=== PATIENT | female | born 1955 | race Caucasian/White ===

== ENCOUNTER 2021-08-23 09:49 | Outpatient (CLI) | payer OTHER, SELFPAY ==
[2021-08-23 10:15] LABS: Hematocrit 43.4 % (37.0-47.0); Hemoglobin 13.8 g/dL (12.0-15.0)
== END 2021-08-23 09:50 | disposition home or self-care (01) ==
LOC: ANHSURGERY 09:56
PROVIDERS: PCP Nurse Practitioner; Visit Provider Obstetrics & Gynecology
DX: Z01.818 Encounter for other preprocedural examination (principal); N95.0 Postmenopausal bleeding
CPT/HCPCS: 36415; 85014; 85018

== ENCOUNTER 2021-08-26 03:28 | Day surgery (SDC) | payer OTHER, SELFPAY ==
[2021-08-22 10:56] VITALS: BMI 32.4
--- NOTE | 2021-08-22 11:05 | PC.NURSE ---
Report to the Outpatient Waiting Room, entrance under the green pavilion located off [facility], at time __0630 on date _08/26/21 . OR Time: . - You will be asked a series of questions to screen for COVID 19 for your protection. - A mask is required within the hospital. - No visitors are allowed at this time. Preoperative COVID Testing Requirements: No COVID Test needed if: (proof is required; if not received patient will have Rapid Test prior to entry) - Patient has received COVID Vaccine at least 14 days prior to procedure date or - Patient has positive COVID test result within last 90 days of surgery date. COVID Test needed if above criteria is not met If not COVID vaccinated a COVID test must be conducted within 72 hours of surgery and patient is asked to isolate self from time of testing until procedure. You will go to the [facility] for your COVID testing. The [facility] is located at the corner of [address] [facility]. You will only be called if COVID results are positive and your surgeon may reschedule your elective surgery date. Patients may have clear liquids (water, carbonated beverages, clear teas, apple juice) until 3 hours prior to surgery with a maximum of 20 ounces. - No food from midnight until time of surgery - Infants may have breast milk until 4 hours before surgery, infant formula 6 hours prior to surgery. - Children will be allowed to drink immediately following surgery. If applicable, please bring a bottle or sippy cup to assist with drinking. Juice, water, soda, and popsicles are readily available. For infants on formula, please bring formula the day of surgery. Pacifiers are allowed. Take the following medications with a SIP of water the morning of surgery: __NIFEDIPINE Medications to discontinue per physician NONE Date to take last dose Please no make-up, nail faroese, hairspray, perfume, deodorant, or body powder the day of surgery. No jewelry (including any body piercings) or valuables the day of surgery, leave them at home. Please take a shower or bath the night before, or the morning of, surgery with an antibacterial soap. Wear comfortable, loose fitting clothing. Children are encouraged to wear pajamas. - Jewelry must be removed prior to entering the operating room. Rings and piercings that are not removed may be cut off. - The hospital will not accept responsibility for valuables. - Please leave all valuables, including medications, at home the day of surgery. If you are going home after surgery, a licensed driver's license examiner must drive you home. - NO public transportation without another adult. - We recommend that an adult stay with you for 24 hours following discharge. - We also recommend that you do not drive, make important decision, drink alcoholic beverages, or take any drugs that were not prescribed by your health care provider for at least 24 hours after your discharge time. For Pediatric surgeries, we recommend two adults accompany the child home (only one inside the building at this time). Follow any additional instructions given to you from your surgeon. Telephone instructions given to __PATIENT and asked if any additional questions and then verbalized understanding. Patient advised to call surgeon office or pre surgery nurse liaison [phone] if any additional questions.
--- NOTE | 2021-08-24 07:50 | PM.IMHP ---
H&P: HPI History of Present Illness Date/Time: 08/24/21 07:50 66-year-old female 1 para 1 admitted for hysteroscopy dilatation curettage secondary to postmenopausal bleeding. This patient had the has taken some steroids and had some postmenopausal bleeding. She has taken no hormones but had not had a Pap smear for some. Ultrasound shows thickened endometrium uterine fibroid. Risks and benefits reviewed Chief Complaint: Postmenopausal bleeding Review of Systems Review of Systems: All systems reviewed & are unremarkable except as noted in HPI and below PMFSH Past Medical History Medical History Abnormal ultrasound of breast Essential (primary) hypertension Hyperlipidemia Microcalcifications of the breast Surgical History Surgical History History of section (~1991) Family History Family History Father Family history of congestive heart failure Other Cerebrovascular accident Family history of malignant neoplasm Social History Social History Smoking status: Never smoker Alcohol intake: unknown Substance use: never Gender identity (if verbalized by the patient): Female Sexual Orientation (if Verbalized by the Patient): Straight or Heterosexual Spiritual care concerns: No Meds Home Medications and Allergies Home Medications Medication Instructions Recorded Confirmed Type nifedipine 30 mg tablet,extended 30 mg PO DAILY 08/10/21 08/22/21 History release Allergies Allergy/AdvReac Type Severity Reaction Status Date / Time Sulfa (Sulfonamide Allergy Unknown Hives Verified 08/22/21 10:53 Antibiotics) lisinopril AdvReac Mild Cough Verified 08/22/21 10:53 Exam Const: General: no acute distress Eyes: General: appearance normal, both eyes and all related structures Neck: Neck: supple and no JVD Thyroid: thyroid normal Resp: Effort & Inspection: normal respiratory effort Auscultation: clear to auscultation bilaterally Cardio: Rate: regular rate Rhythm: regular rhythm GI: Inspection: non-distended GI Palp: Yes Soft to palpation, No Tenderness to palpation present (GI) and No Guarding due to palpation present (GI) Auscultation: normal bowel sounds : General: Yes bladder normal to palpation External Female Exam: normal external appearance Speculum Exam - Vagina: normal vaginal discharge and No vaginal bleeding Speculum Exam - Cervix: nontender Bimanual exam- vagina & uterus: bladder normal to palpation and No Cervical tenderness present OB/external & speculum: No vaginal bleeding Skin: General skin exam: no rashes or lesions noted Extrem: General: normal to inspection and no edema Psych: Mental Status: mental status grossly normal Affect: normal affect Assessment and Plan Additional Plan Impression: Postmenopausal bleeding Plan: Hysteroscopy/dilatation and curettage
[2021-08-26 07:00] VITALS: BP 125/83; PULSE 76; RESP 16; TEMP 36.7; O2SAT 98
[2021-08-26] MEDS: LACTATED RINGERS 1,000 ML 30 ML IV CONT (07:00)
[2021-08-26] MEDS: ACETAMINOPHEN 500 MG TABLET 1000 MG PO (07:10)
--- NOTE | 2021-08-26 07:13 | WPDHPUPDATE1 ---
History and Physical Update Update Date/Time: 08/26/21 07:13 History and Physical has been reviewed, including an updated exam of the patient. There are NO changes in the patient's condition. Risks, benefits, and alternatives have been discussed and questions answered. Patient agrees to proceed with procedure.
--- NOTE | 2021-08-26 08:11 | WPDANESEPPF ---
Anes - Initial Pre Proc Eval Procedure: Operation Date: 08/26/21 08:30 Proposed Procedures p Hysteroscopy Dilation and Curettage - Nico Valladares MD Date/Time: 08/26/21 08:11 Surgeon: Nico Valladares MD Pre Op Diagnosis: post menopausal bleeding Patient Data Age: 66 Gender: F Height: 1.65 m Weight: 87.4 kg Last Vital Signs Temp 36.7 C 08/26/21 07:00 Pulse 76 08/26/21 07:00 Resp 16 08/26/21 07:00 BP 125/83 08/26/21 07:00 Pulse Ox 98 08/26/21 07:00 Allergies Allergy/AdvReac Type Severity Reaction Status Date / Time Sulfa (Sulfonamide Allergy Unknown Hives Verified 08/26/21 07:40 Antibiotics) lisinopril AdvReac Mild Cough Verified 08/26/21 07:40 Home Medications Medication Instructions Recorded Confirmed Type nifedipine 30 mg tablet,extended 30 mg PO DAILY 08/10/21 08/26/21 History release hydrocodone-acetaminophen 1 tablet PO Q4H PRN #20 tablet 08/26/21 Rx Patient hx anesthesia problems: none Family hx anesthesia problems: none Results Review: All pre-operative results and documents have been reviewed as part of the pre-operative evaluation. [facility] Past Medical History Medical History Abnormal ultrasound of breast Essential (primary) hypertension Hyperlipidemia Microcalcifications of the breast Surgical History Surgical History History of section (~1991) Family History Family History Father Family history of congestive heart failure Other Cerebrovascular accident Family history of malignant neoplasm Social History Social History Smoking status: Never smoker Alcohol intake: unknown Substance use: never Living arrangements: with family Gender identity (if verbalized by the patient): Female Sexual Orientation (if Verbalized by the Patient): Straight or Heterosexual Spiritual care concerns: No Anes - Eval Final PreProcedure Day of Procedure 08/26/21 08:11 Patient weight: obese Heart: regular rate and rhythm Lungs: clear to auscultation Airway: Mallampati scale class II Neurological: alert and oriented Last oral intake: >/= 8 hours ASA classification: II Emergent: no Anesthetic plan: proceed Anesthesia type and monitoring: general GIVS and standard monitoring Results Review: All pre-operative results and documents have been reviewed as part of the pre-operative evaluation. Informed Consent: The patient's anesthetic plan and its attendant risks and benefits were discussed with the patient/family/POA. Questions were solicited and answers provided to the satisfaction of the patient/family/POA.
--- NOTE | 2021-08-26 08:46 | W.PM.PROC2 ---
Procedure Note - Detailed Date of Procedure 08/26/21 Pre-op Diagnosis post menopausal bleeding Post-op Diagnosis other Procedure Performed hysteroscopy/ biopsy of intrauterine mass. /Dilatation curettage Surgeon Nico Valladares MD Anesthesia MAC and local Indications 66-year-old female with postmenopausal bleeding Findings what appeared to be large endometrial fibroid Description of Procedure the patient is prepped draped in normal sterile fashion placed in the dorsal lithotomy position. Under excellent IV sedation weighted speculum placed posterior fornix vagina. Anterior lip of the cervix grasped with single-tooth tenaculum and 2.5cc 1% xylocaine anesthesia placed at 2, 4, 8, 10:00 a.m. cervix. Uterus sounded to 8cm. Serial dilatation with fragmented dilators performed followed by passage of the 5mm visualizing hysteroscope. Normal saline was used as visualizing medium. A large fibroid appearing lesion was noted in the uterus which it filled the centrally the entire cavity. The biopsy forceps was passed and a large chunk removed without difficulty. The uterus scraped over the remainder the 360? with minimal tissue. The instruments removed and all were accounted for. All sponge, needle, instrument counts were correct. There were no immediate complications Estimated Blood Loss 5 Drains No Packing No Pathology yes Complications No immediate complications Condition stable Disposition PACU
[2021-08-26 08:50] VITALS: BP 84/58; PULSE 77; RESP 16; O2SAT 94
[2021-08-26 09:09] VITALS: BP 97/57; PULSE 76; RESP 16; O2SAT 98
== END 2021-08-26 09:50 | disposition home or self-care (01) ==
PROVIDERS: PCP Nurse Practitioner; Visit Provider Obstetrics & Gynecology
PROC: 0U5B8ZZ Destruction of Endometrium, Via Natural or Artificial Opening Endoscopic (ICD-10-PCS; CPT 58563; principal; 2021-08-26 08:30)
DX: N95.0 Postmenopausal bleeding (principal); N85.8 Other specified noninflammatory disorders of uterus; I10 Essential (primary) hypertension; E78.5 Hyperlipidemia, unspecified; E66.9 Obesity, unspecified; Z68.32 Body mass index [BMI] 32.0-32.9, adult
CPT/HCPCS: 58561; 36415; 85014; 85018; 88305; A9270; J2250; J2270; J2370; J2704; J7030; J7120

== ENCOUNTER 2021-10-10 09:17 | Outpatient (CLI) | payer OTHER, SELFPAY ==
--- NOTE | 2021-10-10 09:21 | ECG_ITS ---
Measurements Intervals N[place] Rate: 74 P: 37 WI: 158 QRS: -38 QRSD: 94 T: 1 QT: 364 QTc: 406 Interpretive Statements SINUS RHYTHM LEFT AXIS DEVIATION [QRS AXIS < -30] POSSIBLE ANTERIOR MYOCARDIAL INFARCTION [30 ms Q WAVE IN V3/V4, OR R < 0.2 mV IN V4], PROBABLY OLD BASELINE ARTIFACT BORDERLINE ECG NO PREVIOUS ECG AVAILABLE FOR COMPARISON Electronically Signed On 10-10-2021 12:25:41 CDT by Chadd Martin M.D.
[2021-10-10 10:28] LABS: Basophils Absolute Auto 0.1 K/mm3 (0.0-0.1); Basophils Percent Auto 0.6 % (0.2-1.2); Eosinophils Absolute Auto 0.1 K/mm3 (0-0.3); Eosinophils Percent Auto 1.7 % (0-4.4); Hematocrit 41.6 % (37.0-47.0); Hemoglobin 13.1 g/dL (12.0-15.0); Immature Granulocyte Absolute 0.03 K/mm3 (0.00-0.031); Immature Granulocyte Percent A 0.4 % (0-0.5); Lymphocytes Absolute Auto 2.08 K/mm3 (0.9-3.2); Lymphocytes Percent Auto 26.8 % (18.3-44.2); Mean Corpuscular HGB Conc 31.5 g/dl (32-36); Mean Corpuscular Hemoglobin 28.7 pg (26-34); Mean Platelet Volume 10.5 fl (7.4-10.4); Monocytes Absolute Auto 0.6 K/mm3 (0.1-0.6); Monocytes Percent Auto 7.6 % (2.6-8.5); Neutrophils Absolute Auto 4.9 K/mm3 (1.3-6.7); Neutrophils Percent Auto 62.9 % (45.5-73.1); Platelet Count Result 275 k/mm3 (150-375); Red Blood Count 4.57 M/mm3 (4.2-5.4); Red Cell Distribution Width 14.1 % (11.5-14.5); White Blood Count 7.8 K/mm3 (4.5-10.0)
== END 2021-10-10 09:18 | disposition home or self-care (01) ==
LOC: ANHSURGERY 09:19
PROVIDERS: PCP Nurse Practitioner; Visit Provider Obstetrics & Gynecology
DX: Z01.818 Encounter for other preprocedural examination (principal); N95.0 Postmenopausal bleeding; I10 Essential (primary) hypertension
CPT/HCPCS: 36415; 85025; 86850; 86900; 86901; 93005

== ENCOUNTER 2021-10-14 00:44 | Day surgery (SDC) | payer OTHER, SELFPAY ==
[2021-10-03 14:46] VITALS: BMI 32.3
--- NOTE | 2021-10-03 15:02 | PC.NURSE ---
Report to the Outpatient Waiting Room, entrance under the green pavilion located off [facility], at time __6:00AM on date ___10/14/21____. OR Time: ___7:30AM . - You and your visitor will be asked a series of questions to screen for COVID 19 for your protection. - A mask is required within the hospital. Preoperative COVID Testing Requirements: No COVID Test needed if: (proof is required; if not received patient will have Rapid Test prior to entry) - Patient has received COVID Vaccine at least 14 days prior to procedure date or - Patient has positive COVID test result within last 90 days of surgery date. COVID Test needed if above criteria is not met If not COVID vaccinated a COVID test must be conducted within 72 hours of surgery and patient is asked to isolate self from time of testing until procedure. You will go to the [facility] for your COVID testing. The [employer] [facility] site is located at the corner of [address] from [facility]. You will only be called if COVID results are positive and your surgeon may reschedule your elective surgery date. Patients may have clear liquids (water, carbonated beverages, clear teas, apple juice) until 3 hours prior to surgery with a maximum of 20 ounces. - No food from midnight until time of surgery - Infants may have breast milk until 4 hours before surgery, infant formula 6 hours prior to surgery. - Children will be allowed to drink immediately following surgery. If applicable, please bring a bottle or sippy cup to assist with drinking. Juice, water, soda, and popsicles are readily available. For infants on formula, please bring formula the day of surgery. Pacifiers are allowed. Take the following medications with a SIP of water the morning of surgery: ____NONE Medications to discontinue per physician NONE Date to take last dose Please no make-up, nail kuwaiti, hairspray, perfume, deodorant, or body powder the day of surgery. No jewelry (including any body piercings) or valuables the day of surgery, leave them at home. Please take a shower or bath the night before, or the morning of, surgery with an antibacterial soap. Wear comfortable, loose fitting clothing. Children are encouraged to wear pajamas. - Jewelry must be removed prior to entering the operating room. Rings and piercings that are not removed may be cut off. - The hospital will not accept responsibility for valuables. - Please leave all valuables, including medications, at home the day of surgery. If you are going home after surgery, a licensed pile driver engineer must drive you home. - NO public transportation without another adult. - We recommend that an adult stay with you for 24 hours following discharge. - We also recommend that you do not drive, make important decision, drink alcoholic beverages, or take any drugs that were not prescribed by your health care provider for at least 24 hours after your discharge time. For Pediatric surgeries, we recommend two adults accompany the child home (only one inside the building at this time). One visitor will be allowed to accompany the patient into the hospital. Patients visitor will be instructed to remain with patient at all times or leave the building. We will allow the visitor to come back to the postoperative area when patient is ready. Follow any additional instructions given to you from your surgeon. Telephone instructions given to _PATIENT and asked if any additional questions and then verbalized understanding. Patient advised to call surgeon office or pre surgery nurse liaison [phone] if any additional questions.
--- NOTE | 2021-10-12 07:53 | P.HP_ITS ---
H&P: HPI History of Present Illness Date/Time: 10/12/21 07:53 66-year-old female admitted for robotic hysterectomy and bilateral salpingo- oophorectomy secondary to fibroid uterus pelvic pain and postmenopausal bleeding with benign findings. Risks and benefits of the procedure reviewed in full. She had all questions answered. She asked to proceed Chief Complaint: Postmenopausal bleeding with enlarged uterus and pelvic pain Review of Systems Review of Systems: All systems reviewed & are unremarkable except as noted in HPI and below PMFSH Past Medical History Medical History Abnormal ultrasound of breast Essential (primary) hypertension Hyperlipidemia Microcalcifications of the breast Surgical History Surgical History History of section (~1991) Family History Family History Father Family history of congestive heart failure Other Cerebrovascular accident Family history of malignant neoplasm Social History Social History Smoking status: Never smoker Alcohol intake: unknown Substance use: never Additional living arrangements comments: SPOUSE Gender identity (if verbalized by the patient): Female Sexual Orientation (if Verbalized by the Patient): Straight or Heterosexual Spiritual care concerns: No Meds Home Medications and Allergies Home Medications Medication Instructions Recorded Confirmed Type nifedipine 30 mg tablet,extended 30 mg PO HS 08/10/21 10/03/21 History release Allergies Allergy/AdvReac Type Severity Reaction Status Date / Time Sulfa (Sulfonamide Allergy Unknown Hives Verified 10/03/21 14:44 Antibiotics) lisinopril AdvReac Mild Cough Verified 10/03/21 14:44 Exam Const: General: no acute distress Eyes: General: appearance normal, both eyes and all related structures Neck: Neck: supple and no JVD Thyroid: thyroid normal Resp: Effort & Inspection: normal respiratory effort Auscultation: clear to auscultation bilaterally Cardio: Rate: regular rate Rhythm: regular rhythm GI: Inspection: non-distended GI Palp: Yes Soft to palpation, No Tenderness to palpation present (GI) and No Guarding due to palpation present (GI) Auscultation: normal bowel sounds : External Female Exam: normal external appearance Speculum Exam - Vagina: normal appearance of the vagina Bimanual exam- vagina & uterus: enlarged Skin: General skin exam: no rashes or lesions noted Extrem: General: normal to inspection and no edema Psych: Mental Status: mental status grossly normal Affect: normal affect Assessment and Plan Additional Plan Impression: Enlarged uterus pelvic pain/uterine fibroids and postmenopausal bleeding with benign findings Plan: Robotic hysterectomy and bilateral salpingo-oophorectomy
--- NOTE | 2021-10-13 13:45 | WPDANESEPPF ---
Anes - Initial Pre Proc Eval Procedure: Operation Date: 10/14/21 07:30 Proposed Procedures p Robotic Assisted Total Vaginal Hysterectomy with Bilateral Salpingo-Oophorectomy - Nico Ojeda MD Date/Time: 10/13/21 13:45 Surgeon: Nico Ojeda MD Pre Op Diagnosis: Post Menopausal Bleed,Fibroids,Pain Enlarge Uterus Patient Data Age: 66 Gender: F Height: 1.65 m Weight: 88 kg Allergies Allergy/AdvReac Type Severity Reaction Status Date / Time Sulfa (Sulfonamide Allergy Unknown Hives Verified 10/14/21 06:05 Antibiotics) lisinopril AdvReac Mild Cough Verified 10/14/21 06:05 Home Medications Medication Instructions Recorded Confirmed Type nifedipine 30 mg tablet,extended 30 mg PO HS 08/10/21 10/14/21 History release hydrocodone-acetaminophen 1 tablet PO Q4H PRN #30 tablet 10/14/21 Rx Patient hx anesthesia problems: none Family hx anesthesia problems: none Results Review: All pre-operative results and documents have been reviewed as part of the pre-operative evaluation. [facility] Past Medical History Medical History Abnormal ultrasound of breast Essential (primary) hypertension Hyperlipidemia Microcalcifications of the breast Surgical History Surgical History History of section (~1991) Family History Family History Father Family history of congestive heart failure Other Cerebrovascular accident Family history of malignant neoplasm Social History Social History Smoking status: Never smoker Alcohol intake: unknown Substance use: never Living arrangements: with family Additional living arrangements comments: SPOUSE Gender identity (if verbalized by the patient): Female Sexual Orientation (if Verbalized by the Patient): Straight or Heterosexual Spiritual care concerns: No Anes - Eval Final PreProcedure Day of Procedure 10/13/21 13:45 Patient weight: overweight Heart: regular rate and rhythm Lungs: clear to auscultation Airway: Mallampati scale class III Neurological: alert and oriented Last oral intake: >/= 8 hours ASA classification: II Emergent: no Anesthetic plan: proceed Anesthesia type and monitoring: general ETT and standard monitoring Results Review: All pre-operative results and documents have been reviewed as part of the pre-operative evaluation. Informed Consent: The patient's anesthetic plan and its attendant risks and benefits were discussed with the patient/family/POA. Questions were solicited and answers provided to the satisfaction of the patient/family/POA.
[2021-10-14] VITALS (11 sets, daily range): BP systolic 113–149; BP diastolic 72–97; PULSE 63–114; RESP 12–18; TEMP 36.3–37.3; O2SAT 94–100
[2021-10-14] MEDS: ACETAMINOPHEN 500 MG TABLET 1000 MG PO (06:21)
[2021-10-14] MEDS: LACTATED RINGERS 1,000 ML 30 ML IV CONT ×2 (06:36→09:08)
[2021-10-14] MEDS: KETOROLAC 15 MG/ML VIAL (*BKC) IV PUSH ×2 (06:37→10:18)
--- NOTE | 2021-10-14 07:06 | WPDHPUPDATE1 ---
History and Physical Update Update Date/Time: 10/14/21 07:06 History and Physical has been reviewed, including an updated exam of the patient. There are NO changes in the patient's condition. Risks, benefits, and alternatives have been discussed and questions answered. Patient agrees to proceed with procedure.
[2021-10-14] MEDS: SCOPOLAMINE 1.5 MG PATCH TRANSDERM (07:21)
[2021-10-14] MEDS: ceFAZolin 2 GM/D5W 50 ML 2 GM/50 ML BAG IVPB (07:37)
--- NOTE | 2021-10-14 08:49 | P.OP_ITS ---
Procedure Note - Detailed Date of Procedure 10/14/21 Pre-op Diagnosis Post Menopausal Bleed,Fibroids,Pain Enlarge Uterus Post-op Diagnosis Same Procedure Performed Robotic total vaginal hysterectomy and bilateral salpingo-oophorectomy Surgeon Nico Ojeda MD Anesthesia General Indications this is a 66-year-old female with a history of postmenopausal bleeding benign findings endometrial sampling Findings enlarged uterus. Normal-appearing ovaries and tubes the left ovarian cyst was present measuring about 6cm very benign in nature Description of Procedure the patient was prepped draped in the normal sterile fashion placed in the dorsal lithotomy position. Under excellent general trach anesthesia weighted speculum was placed in posterior fornix vagina. Anterior lip of the cervix grasped with single-tooth tenaculum and the uterus sounded to 8cm. Serial dilatation with fragmented dilators performed followed by passage of the 6. JELENA and the 3. Cold cup. Next the 16 Kazakh catheter was placed in the bladder draining clear urine. The weighted speculum. Gloves were changed A supraumbilical incision made the Veress needle passed in the abdomen. Abdomen filled with CO2 gas to 15mm Hg. The 8mm trocar advanced under direct visualization assuring injury and the patient placed in Trendelenburg. Right left lateral quadrant incisions and made and the 8mm trocars advanced under direct visualization. A right upper quadrant incision made the 8mm trocar advanced under direct visualization assuring injury. The robot was docked. Attention was turned to the delinquency counselor. A large left ovarian cyst was seen but it had a benign left to it. The left round ligament was grasped, burned, cut and anteriorly a bladder flap by sharply dissecting and the reflecting the bladder caudally to the opposite round ligament which was clamped, burned, cut. A large left ovarian cyst was seen and the infundibulopelvic structure on the left was skeletonized. This was clamped, burned, cut and brought to the level of the previously cut round ligament. In like fashion removing the right ovary and tube the infundibulopelvic structure was skeletonized. This was clamped, burned, cut and brought to the level of previously cut round ligament. Next cardinal broad ligaments on the left were serially skeletonized. Hugging the cervix uterus ease were clamped, burned, cut and brought down the lateral edge of the uterus until the uterine vessels could be seen. These were individually clamped, burned, cut. In like fashion the cardinal broad ligaments on the right were serially skeletonized. Clamped, burned, cut and brought down lateral edge of the uterus and cervix until the uterine vessels could be seen on the right. These were individually clamped, burned, cut. Blanching the uterus was seen and a colpotomy incision made. The uterus cervix and ovaries and tubes removed through the vagina. The vagina then closed with continuous running 0V lock from lateral edge lateral edge back to the midline. Irrigation undertaken to clear hemostasis was assured. Blood loss estimated at5cc. The robot was undocked. The gas removed from the abdomen and the incisions closed with 4 Monocryl and g lue. Patient was awakened went recovery in satisfactory condition. All sponge, needle, instrument counts were correct. There were no immediate complications Estimated Blood Loss 5 Drains No Packing No Pathology Yes Complications No immediate complications Condition Stable Disposition PACU
[2021-10-14] MEDS: fentaNYL CITRATE INJ (*CRX) 100 MCG/2 ML VIAL 25 MCG IV PUSH ×4 (09:45→09:51)
--- NOTE | 2021-10-14 10:30 | PC.NURSE ---
This patient, Nakia Hernandez, was received from PACU on 10/14/21 at 1030. Patient/family oriented to unit policies and routines
[2021-10-14] MEDS: DEXTROSE 5%/LACTATED RINGERS 1,000 ML 125 ML IV CONT (10:49)
[2021-10-14] MEDS: KETOROLAC 30 MG/ML VIAL (*BKC) IV PUSH (14:33)
[2021-10-14] MEDS: ARTIFICIAL TEARS OPHTH SOLN 15 ML BOTTLE 1 DROP EACH EYE (14:33)
[2021-10-14] MEDS: NIFEdipine 30 MG TAB.ER.24 PO (21:00)
[2021-10-15 04:40] VITALS: BP 128/78; PULSE 94; RESP 16; TEMP 36.7
[2021-10-15 05:11] LABS: Basophils Percent Auto 0.2 % (0.2-1.2); Hematocrit 37.9 % (37.0-47.0); Immature Granulocyte Absolute 0.08 K/mm3 (0.00-0.031); Immature Granulocyte Percent A 0.5 % (0-0.5); Lymphocytes Absolute Auto 1.78 K/mm3 (0.9-3.2); Lymphocytes Percent Auto 10.7 % (18.3-44.2); Mean Corpuscular HGB Conc 31.7 g/dl (32-36); Mean Corpuscular Hemoglobin 28.8 pg (26-34); Mean Corpuscular Volume 90.9 fl (80-100); Mean Platelet Volume 10.1 fl (7.4-10.4); Monocytes Percent Auto 6.1 % (2.6-8.5); Neutrophils Absolute Auto 13.7 K/mm3 (1.3-6.7); Neutrophils Percent Auto 82.5 % (45.5-73.1); Platelet Count Result 282 k/mm3 (150-375); Red Blood Count 4.17 M/mm3 (4.2-5.4); Red Cell Distribution Width 14.1 % (11.5-14.5); White Blood Count 16.6 K/mm3 (4.5-10.0)
--- NOTE | 2021-10-15 06:35 | PM.DS ---
DS: Admitting Diagnosis Discharge Date 10/15/2021 Admitting Diagnosis enlarged uterus pelvic pain postmenopausal bleeding DS: Summary Hospital Course Hospital Course: patient was admitted for robotic total vaginal bleeding bilateral salpingo-oophorectomy. The procedure was unremarkable. Please see the operative report for details. She remained afebrile. She was up, voiding without difficulty, ambulating, eating regular diet, and generally without complaints. Time Spent with Patient Time attestation: Total time spent providing and/or coordinating discharge services: Exam Const: General: no acute distress Eyes: General: appearance normal, both eyes and all related structures Neck: Neck: supple and no JVD Thyroid: thyroid normal Resp: Effort & Inspection: normal respiratory effort Auscultation: clear to auscultation bilaterally Cardio: Rate: regular rate Rhythm: regular rhythm GI: Inspection: non-distended GI Palp: Yes Soft to palpation, No Tenderness to palpation present (GI) and No Guarding due to palpation present (GI) Auscultation: normal bowel sounds : General: Yes bladder normal to palpation External Female Exam: normal external appearance Speculum Exam - Vagina: normal vaginal discharge and No vaginal bleeding Speculum Exam - Cervix: nontender Bimanual exam- vagina & uterus: bladder normal to palpation and No Cervical tenderness present OB/external & speculum: No vaginal bleeding Skin: General skin exam: no rashes or lesions noted Extrem: General: normal to inspection and no edema Psych: Mental Status: mental status grossly normal Affect: normal affect DS: Data Data Completed and Pending Pending studies at discharge: Pending at discharge 10/14/21 08:49 Surgical [PTH] Routine Labs on day of discharge: Labs from last 24 hours 10/15/21 04:43 WBC 16.6 H RBC 4.17 L Hgb 12.0 Hct 37.9 MCV 90.9 MCH 28.8 MCHC 31.7 L RDW 14.1 Plt Count 282 MPV 10.1 Immature Gran % (Auto) 0.5 Neut % (Auto) 82.5 H Lymph % (Auto) 10.7 L [place] % (Auto) 6.1 Eos % (Auto) 0.0 Baso % (Auto) 0.2 Lymph # (Auto) 1.78 [place] # (Auto) 1.0 H Eos # (Auto) 0.0 Baso # (Auto) 0.0 Abs Immat Gran (auto) 0.08 H Absolute Neuts (auto) 13.7 H Absolute Nucleated RBC 0.0 Nucleated RBC % 0.0 Discharge Plan Discharge Patient Disposition: Home, Self-Care Stand Alone Forms: General Discharge Instructions Follow-up/Referrals: Nico Pak MD [Physician] - Discharge Medications: New hydrocodone-acetaminophen 5-325 mg tablet 1 tablet PO Q4H PRN (Reason: pain) Qty: 30 RF: 0 No Action nifedipine 30 mg tablet extended release 30 mg PO HS RF: 0
--- NOTE | 2021-10-15 06:36 | PM.GYNPNOP ---
IMPORT MANAGER - A/P Postoperative Procedures: Procedures Operation Date: 10/14/21 07:30 Actual Procedure Side Surgeon p Robotic Assisted Total Vaginal Hysterectomy with Bilateral Salpingo-Oophorectomy Bilateral Nico Ojeda MD Time Spent With Patient Time: Total time spent is greater than 50% in coordination of care (as documented) at patient's floor/unit and/or counseling patient: Time with patient: less than 15 minutes IMPORT MANAGER- PN:Subj Post-Op Subjective Date/time seen: 10/15/21 06:36 Review of Systems Review of Systems: All systems reviewed & are unremarkable except as noted in HPI and below Exam Const: General: no acute distress Eyes: General: appearance normal, both eyes and all related structures Neck: Neck: supple and no JVD Thyroid: thyroid normal Resp: Effort & Inspection: normal respiratory effort Auscultation: clear to auscultation bilaterally Cardio: Rate: regular rate Rhythm: regular rhythm GI: Inspection: non-distended GI Palp: Yes Soft to palpation, No Tenderness to palpation present (GI) and No Guarding due to palpation present (GI) Auscultation: normal bowel sounds : General: Yes bladder normal to palpation External Female Exam: normal external appearance Speculum Exam - Vagina: normal vaginal discharge and No vaginal bleeding Speculum Exam - Cervix: nontender Bimanual exam- vagina & uterus: bladder normal to palpation and No Cervical tenderness present OB/external & speculum: No vaginal bleeding Skin: General skin exam: no rashes or lesions noted Extrem: General: normal to inspection and no edema Psych: Mental Status: mental status grossly normal Affect: normal affect IMPORT MANAGER - PN: Obj Data Vital Signs Vital Signs: Vital Signs - 24 hr 10/14/21 09:08 10/14/21 09:15 10/14/21 09:30 Temperature 97.4 F L Pulse Rate 68 69 70 Respiratory Rate 16 13 18 Blood Pressure 113/78 116/75 118/72 Pulse Oximetry 100 99 97 10/14/21 09:45 10/14/21 10:00 10/14/21 10:15 Temperature Pulse Rate 64 66 67 Respiratory Rate 12 14 12 Blood Pressure 118/75 122/83 149/76 H Pulse Oximetry 96 94 97 10/14/21 10:20 10/14/21 12:37 10/14/21 16:15 Temperature 97.7 F 98.7 F Pulse Rate 63 82 98 Respiratory Rate 12 16 16 Blood Pressure 139/72 131/84 146/88 H Pulse Oximetry 97 98 97 10/14/21 18:30 10/15/21 04:40 Temperature 97.9 F 98.0 F Pulse Rate 114 H 94 Respiratory Rate 16 16 Blood Pressure 142/97 H 128/78 Pulse Oximetry Intake/Output Intake/Output: Intake & Output 10/12/21 10/13/21 10/14/21 10/15/21 23:59 23:59 23:59 23:59 Intake Total 2790 1000 Output Total 600 1000 Balance 2190 0 Meds/Results Medications: Active Medications Generic Name Dose Route Start Last Admin Trade Name Freq PRN Reason Stop Dose Admin Hydrocodone Bitart/Acetaminophen 1 tab 10/14/21 10:22 Hydrocodone/Acetaminophen (*Crx) 5-325 Mg Tablet PO Q3H PRN Pain Rated 5 or Less Hydrocodone Bitart/Acetaminophen 1 tab 10/14/21 10:22 Hydrocodone/Acetaminophen (*Crx) 10-325 Mg Tablet PO Q3H PRN Pain Rated 6 or Greater Artificial Tears 1 drop 10/14/21 14:12 10/14/21 14:33 Artificial Tears Ophth Soln 15 Ml Bottle EACH EYE 1 drop QID PRN Administration Dry Eye(s) Docusate Sodium 100 mg 10/14/21 10:22 10/14/21 18:10 Docusate Sodium 100 Mg Capsule PO Not Given BID MADIHA Enoxaparin Sodium 40 mg 10/14/21 10:22 10/14/21 18:04 Enoxaparin 40 Mg/0.4 Ml Syringe SUB-Q Not Given DAILY MADIHA Dextrose/Lactated Ringer's 1,000 mls @ 125 mls/hr 10/14/21 10:22 10/14/21 18:57 Dextrose 5%/Lactated Ringers IV CONT Infused .Q8H MADIHA Infusion Ibuprofen 600 mg 10/14/21 10:22 Ibuprofen 600 Mg Tablet PO Q6H PRN Cramping Ketorolac Tromethamine 30 mg 10/14/21 10:22 10/14/21 14:33 Ketorolac 30 Mg/Ml Vial (*Bkc) IV PUSH 10/19/21 10:21 30 mg Q6H PRN Administration Pain Rated 4-6 Naloxone HCl 0.1 mg 10/14/21 10:22
[2021-10-15] MEDS: IBUPROFEN 600 MG TABLET PO (07:15)
[2021-10-15] MEDS: ENOXAPARIN 40 MG/0.4 ML SYRINGE SUB-Q (07:15)
[2021-10-15] MEDS: DOCUSATE SODIUM 100 MG CAPSULE PO (07:16)
[2021-10-15] MEDS: SIMETHICONE 80 MG TAB.CHEW PO (07:16)
[2021-10-15 07:30] VITALS: BP 125/86; PULSE 102; RESP 16; TEMP 36.7; O2SAT 97
== END 2021-10-15 09:35 | disposition home or self-care (01) ==
LOC: ANHSURGERY 07:07 → ANHOB2 10:24
PROVIDERS: PCP Family Medicine; Visit Provider Obstetrics & Gynecology
PROC: (CPT 58552; principal; 2021-10-14 07:30)
DX: N92.4 Excessive bleeding in the premenopausal period (principal); D25.1 Intramural leiomyoma of uterus; D25.2 Subserosal leiomyoma of uterus; R10.2 Pelvic and perineal pain; N84.0 Polyp of corpus uteri; N84.1 Polyp of cervix uteri; N73.6 Female pelvic peritoneal adhesions (postinfective); D27.1 Benign neoplasm of left ovary; I10 Essential (primary) hypertension; E78.5 Hyperlipidemia, unspecified
CPT/HCPCS: 58552; S2900; 36415; 85025; 86850; 86900; 86901; 88307; 93005; 99199; A9270; J0690; J1100; J1170; J1650; J1885; J2250; J2405; J2704; J2710; J3010; J7030; J7120; J7121

== ENCOUNTER → 2022-06-29 09:44 | Outpatient (CLI) | payer OTHER, SELFPAY ==
--- NOTE | ~2022-06-29 | DEXA_ITS ---
Bone Density Report Name: HERMANN CARRENO Age: 66 Sex: Female Ethnicity: White Date of : 1955 Indication: postmenopausal; screening for osteoporosis; hysterectomy; Referring Provider: Merari Dykes Study: Bone densitometry was performed. Exam Date: June 29, 2022 Accession number: [id number] Bone Density: Region BMD T-score Z-score Classification AP Spine (L1-L4) 1.114 0.6 2.5 Normal Femoral Neck (Left) 0.772 -0.7 0.9 Normal Total Hip (Left) 1.009 0.6 1.9 Normal Femoral Neck (Right) 0.742 -1.0 0.7 Normal Total Hip (Right) 1.006 0.5 1.9 Normal Total Hip Mean 1.008 0.6 1.9 Normal World Health Organization criteria for BMD impression classify patients as: Normal (T-score at or above -1.0), Osteopenia (T-score between -1.0 and -2.5), or Osteoporosis (T-score at or below -2.5). 10-year Fracture Risk: FRAX not reported because: All T-scores for Spine Total, Hip Total, Femoral Neck at or above -1.0 Clinical Information Provided by Patient: Has the following medical conditions: Hysterectomy Patient maximum height was 65.0 Menopause Age: 50 No regular weight bearing exercise Drinks caffeinated beverages Onset of menses at age 16 Number of children 1 Impression: The patient has normal bone mass. Discussion: BONE DENSITY IS ABOVE THE MINIMUM DESIRABLE LEVEL AT ALL SKELETAL SITES TESTED. This patient?s bone mineral density is above the minimum desirable level (T-score -1.0 or better) at all sites measured. The patient should follow a healthful lifestyle (good nutrition with adequate calcium and vitamin D, and appropriate weight-bearing exercise). Follow-Up: Consider repeating this study in 5 years or sooner if there is some new clinical indication. Reported by: JOB on 06/29/2022 10:12:00 AM. Reviewed, dictated and finalized at location [facility]
== END ==
PROVIDERS: PCP Family Medicine; Visit Provider Nurse Practitioner
DX: Z78.0 Asymptomatic menopausal state (principal)
CPT/HCPCS: 77080

== ENCOUNTER 2023-02-26 11:05 | Outpatient (CLI) | payer OTHER, SELFPAY ==
[2023-02-26 12:12] LABS: Kit Draw Collected
== END 2023-02-26 11:06 | disposition home or self-care (01) ==
LOC: ANHGOSHLAB 11:07
PROVIDERS: PCP Family Medicine; Visit Provider Nurse Practitioner Family
DX: I10 Essential (primary) hypertension (principal); Z13.29 Encounter for screening for other suspected endocrine disorder; Z13.1 Encounter for screening for diabetes mellitus; Z13.220 Encounter for screening for lipoid disorders; Z13.21 Encounter for screening for nutritional disorder
CPT/HCPCS: 36415